=== PATIENT | female | born 1975 | race Caucasian/White ===

== ENCOUNTER 2018-06-08 22:18 | Emergency (ER) | payer BC ==
[2018-06-08 22:37] VITALS: O2SAT 100
--- NOTE | 2018-06-08 23:36 | ED PDOC ---
Lower Extremity Pain/Injury Time Seen by Provider: 06/08/18 22:48 Chief Complaint (Nursing): Lower Extremity Problem/Injury Chief Complaint (Provider): Lower Extremity Problem/Injury History Per: Patient History/Exam Limitations: no limitations Onset/Duration Of Symptoms: Days (x 1) Current Symptoms Are (Timing): Still Present Additional Complaint(s): 43 year old female with a history of hypothyroidism presents to the ED with constant left leg pain, onset 1 day ago. Patient describes onset as gradual and pain as cramping. She has experienced no relief with Motrin. Yesterday, she flew back from [place] and in addition to the six hour flight, she drove two hours to the airport. Patient also reports that while in [place] she was flying to multiple different places. Otherwise, she denies swelling, trauma, injury, numbness, motor weakness, chest pain and shortness of breath. Also denies family history of pulmonary edema or deep vein thrombosis, recent immobilization , surgery and control use. PMD: [facility] Past Medical History Reviewed: Historical Data Vital Signs: Last Vital Signs Temp 98.2 F 06/08/18 22:30 Pulse 75 06/08/18 22:30 Resp 17 06/08/18 22:30 BP 108/75 06/08/18 22:30 Pulse Ox 100 06/08/18 22:30 - Medical History PMH: Hypothyroidism - Surgical History Surgical History: No Surg Hx - Family History Family History: States: Diabetes, Hypertension - Social History Current smoker - smoking cessation education provided: No - Home Medications Home Medications: Ambulatory Orders Medication Instructions Recorded Cyclobenzaprine [Cyclobenzaprine 10 mg PO BID #15 tab 06/09/18 HCl] - Allergies Allergies/Adverse Reactions: Allergies Allergy/AdvReac Type Severity Reaction Status Date / Time No Known Allergies Allergy Verified 06/08/18 22:37 Review of Systems ROS Statement: Except As Marked, All Systems Reviewed And Found Negative Musculoskeletal: Positive for: Leg Pain (left leg cramping ) Physical Exam - Reviewed Nursing Documentation Reviewed: Yes Vital Signs Reviewed: Yes - Physical Exam Appears: Positive for: Well, No Acute Distress Head Exam: Positive for: ATRAUMATIC Skin: Positive for: Warm, Dry Cardiovascular/Chest: Positive for: Regular Rate, Rhythm. Negative for: Murmur Respiratory: Positive for: Normal Breath Sounds. Negative for: Respiratory Distress Pulses-Dorsalis Pedis (L): 2+ Back: Positive for: Normal Inspection. Negative for: Decreased ROM Extremity: Positive for: Normal ROM (full ROM at left knee and ankle ), Calf Tenderness, Capillary Refill (< 2 seconds), Other (5/5 strength; light touch intact). Negative for: Deformity (and palpable muscle spasm), Swelling Neurologic/Psych: Positive for: Oriented. Negative for: Motor/Sensory Deficits - Laboratory Results Result Diagrams: 06/09/18 00:05 - ECG O2 Sat by Pulse Oximetry: 100 (RA) Pulse Ox Interpretation: Normal Medical Decision Making Medical Decision Makin:06 Impression: leg cramp, DVT vs electrolyte abnormality vs calf strain Initial Plan: --D Dimer --Mag Phos --CMP Scribe Attestation: Documented by Calli Szymanski acting as a scribe for Sarah Castillo MD Provider Scribe Attestation: All medical record entries made by the Scribe were at my direction and personally dictated by me. I have reviewed the chart and agree that the record accurately reflects my personal performance of the history, physical exam, medical decision making, and the department course for this patient. I have also personally directed, reviewed, and agree with the discharge instructions and disposition. Disposition - Clinical Impression Clinical Impression: Leg pain - Patient ED Disposition Is Patient to be Admitted: Transfer of Care - Disposition Referrals: [facility] [Other] Disposition: Transfer of Care Disposition Time: 00:00 Condition: IMPROVED Prescriptions: Cyclobenzaprine [Cyclobenzaprine HCl] 10 mg PO BID #15 tab Patient Signed Over To: Alexander Pearson Handoff Comments: pending labs, reevaluation and final disposition
[2018-06-09 00:18] LABS: ALB/GLOB RATIO 1.3 (1.0-2.1); ALBUMIN 4.9 g/dL (3.5-5.0); ALT/SGPT 27 U/L (9-52); AST/SGOT 34 U/L (14-36); BLOOD UREA NITROGEN 11 mg/dl (7-17); CALCIUM 9.2 mg/dL (8.4-10.2); GFR NON-AFRICAN AMERICAN > 60
--- NOTE | 2018-06-09 00:37 | ED PDOC ---
- Laboratory Results Result Diagrams: 06/09/18 00:05 - ECG O2 Sat by Pulse Oximetry: 100 (RA) Pulse Ox Interpretation: Normal Medical Decision Making Medical Decision Makin:00 --Patient endorsed to this provider by Dr. Castillo pending labs, reevaluation and final disposition. 01:32 Patient's D Dimer levels are within normal limits. She is stable for discharge home. Return precautions provided. Scribe Attestation: Documented by Calli Szymanski acting as a scribe for Alexander Pearson MD Provider Scribe Attestation: All medical record entries made by the Scribe were at my direction and personally dictated by me. I have reviewed the chart and agree that the record accurately reflects my personal performance of the history, physical exam, medical decision making, and the department course for this patient. I have also personally directed, reviewed, and agree with the discharge instructions and disposition. Disposition - Clinical Impression Clinical Impression: Leg pain - POA Present On Arrival: None - Disposition Referrals: [facility] [Other] Disposition: Routine/Home Disposition Time: 01:32 Condition: IMPROVED Prescriptions: Cyclobenzaprine [Cyclobenzaprine HCl] 10 mg PO BID #15 tab Instructions: Muscle and Bone Pain (DC) Forms: Workables (Turkish)
[2018-06-09 01:44] VITALS: BP 116/78; PULSE 78; RESP 18; TEMP 98
== END 2018-06-09 01:44 | disposition home or self-care (01) ==
LOC: H.ER 22:18
DX: M79.605 Pain in left leg (principal); E03.9 Hypothyroidism, unspecified